=== PATIENT | male | born 1945 | race Caucasian/White ===

== ENCOUNTER 2020-05-08 13:11 | Emergency (ER) | payer MEDICARE, BC ==
[~2020-05-08] VITALS: Ht 177.8 cm; Wt 89.0 kg
--- NOTE | 2020-05-08 13:35 | NUR ---
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 sudden onset left sided headache with left facial and left arm numbness onset 0945 this am while sitting down. pt states pain was 9/10 at onset, now 1.5/10. pt states numbness has completely resolved. pt is neurologically intact with 5/5 strength to all extremities, equal parachute crown sewer bilaterally, pupils equal round and reactive. no facial droop. denies injury/trauma. EKG taken on arrival by EDT. This RN reviewed pt symtomology and timeline with ELIZABETH Bright who states code neuro not indicated at this time.
--- NOTE | 2020-05-08 14:03 | NUR ---
report given at bedside to DEEPAK Huerta who is assuming care. pt is a&o, resps even and unlabored. nsr on cardiac catheterization technician with no ectopy. awaiting orders from provider at this time.
--- NOTE | 2020-05-08 14:08 | NUR ---
pt in bed with no signs or symptoms of acute distress noted respiraitons even and unlabored denies pain or discomfort. on night monitor, satting well on room air, bed rails up bilaterally and call light within reach. pt aware and agreeable with plan of care.
[2020-05-08] MEDS ORDERED: MIDAZOLAM 1 MG/ML, 2ML ONE (14:23)
[2020-05-08] MEDS ORDERED: MIDAZOLAM 1 MG/ML, 2ML IVPush ONE (14:30)
[2020-05-08] MEDS ORDERED: SODIUM CHLORIDE FLUSH 10ML SYR IVF ONE (14:30)
--- NOTE | 2020-05-08 14:31 | NUR ---
pt out to mri with tech as transporter, taken via gurney with no signs or symptoms of acute distress noted respirations even and unlabored. pt premedicated as ordered with versed 2mg iv.
--- NOTE | 2020-05-08 14:59 | NUR ---
pt back from imaging, reports mild difficulty with sitting through mri, but able to complete study. pt in bed with no signs or symptoms of acute distress noted respirations even and unlabored, on athletic monitor with bed rails up bilaterally and call light on lap. at bedside. pt satting well on room air, moving all extremities equally, denies pain or discomfort at this time.
[2020-05-08] MEDS ORDERED: OMNIPAQUE 350 MG/ML, 100ML BOTTLE ONE (15:28)
--- NOTE | 2020-05-08 15:30 | NUR ---
pt back from ct no signs or symptoms of acute distress noted respiraitons even and unlabored denies need or discomfort at this time. on quality assurance monitor body, satting well on room air, call light within reach and at bedside.
[2020-05-08 16:45] VITALS: BP 147/71
== END 2020-05-08 17:33 | disposition home or self-care (01) ==
LOC: ED 14:39
DX: I66.01 Occlusion and stenosis of right middle cerebral artery (principal); R94.31 Abnormal electrocardiogram [ECG] [EKG]
CPT/HCPCS: 70496; 70498; 70551; 93005; 96374; 99285; J2250; Q9967